=== PATIENT | male | born 1960 | race Caucasian/White ===

== ENCOUNTER 2018-11-05 10:15 | Emergency (ER) | payer BC ==
[2018-11-05] MEDS ORDERED: methylPREDNISolone Sodium Succinate 125 MG/2 ML SDV IM ONE (10:43)
[2018-11-05] MEDS ORDERED: Albuterol/Ipratropium 3.0-0.5 MG/3 ML Neb Soln NEB ONE (10:43)
--- NOTE | 2018-11-05 10:44 | EDM.PDOC ---
ED HPI GENERAL MEDICAL PROBLEM - General Chief Complaint: Respiratory Problem Stated Complaint: RESPIRATORY ISSUES Time Seen by Provider: 11/05/18 10:40 Source of Information: Reports: Patient History Limitations: Reports: No Limitations - History of Present Illness INITIAL COMMENTS - FREE TEXT/NARRATIVE: HISTORY AND PHYSICAL: History of present illness: Patient is a 57-year-old male here with complaint of cough 4 days. He states he has had some vomiting, sore throat, pain in his side all secondary to the cough. He states he's felt feverish with chills. He denies chest pain or shortness of breath. Past medical history significant for hypertension and hyperlipidemia. He does smoke 1.5 pack per day 20+ years Review of systems: As per history of present illness and below otherwise all systems reviewed and negative. Past medical history: As per history of present illness and as reviewed below otherwise noncontributory. Surgical history: As per history of present illness and as reviewed below otherwise noncontributory. Social history: No reported history of drug or alcohol abuse. Family history: As per history of present illness and as reviewed below otherwise noncontributory. Physical exam: General: Patient sitting comfortably in no acute distress and nontoxic appearing HEENT: Atraumatic, normocephalic, pupils reactive, negative for conjunctival pallor or scleral icterus, mucous membranes moist, throat clear, neck supple, nontender, trachea midline. No meningeal signs. Lungs: Breath sounds are tight with wheezing throughout all lung hood., chest nontender. Heart: S1S2, regular, negative for clicks, rubs, or overt murmur. Abdomen: Soft, nondistended, nontender. Negative for masses or hepatosplenomegaly. Negative for costovertebral tenderness. Pelvis: Stable nontender. Genitourinary: Deferred. Rectal: Deferred. Extremities: Atraumatic, negative for cords or calf pain. Neurovascular unremarkable. Neuro: Awake, alert, oriented. Cranial nerves II through XII unremarkable. Cerebellum unremarkable. Motor and sensory unremarkable throughout. Exam nonfocal. Notes: Diagnostics: Chest x-ray, influenza Therapeutics: DuoNeb SoluMedrol 125 mg IM Prescriptions: Azithromycin Ventolin inhaler Medrol dosepak Impression: Acute bronchitis Plan: 1. Take medications as instructed 2. Follow up with primary care provider 3. Return to ED as needed as discussed Definitive disposition and diagnosis as appropriate pending reevaluation and review of above. Generalized Pain Score (Numeric/FACES): 4 - Related Data Allergies Allergy/AdvReac Type Severity Reaction Status Date / Time Penicillins Allergy Swelling Verified 11/05/18 10:35 Home Meds: Home Meds atorvaSTATin [Lipitor] 40 mg PO DAILY 09/05/18 [History] hydroCHLOROthiazide [Hydrochlorothiazide] 25 mg PO QAM 09/05/18 [History] Albuterol [Ventolin HFA] 1 puff INH Q4H #1 inhaler 11/05/18 [Rx] Azithromycin [Zithromax] 250 mg PO ASDIRECTED #1 dosepk 11/05/18 [Rx] methylPREDNISolone [Medrol] 4 mg PO ASDIRECTED #1 tab.ds.pk 11/05/18 [Rx] Past Medical History - Past Health History Medical/Surgical History: Denies Medical/Surgical History Cardiovascular History: Reports: High Cholesterol, Hypertension Musculoskeletal History: Reports: None - Infectious Disease History Infectious Disease History: Reports: Chicken Pox - Past Surgical History Cardiovascular Surgical History: Reports: None Musculoskeletal Surgical History: Reports: Other (See Below) Other Musculoskeletal Surgeries/Procedures:: screws to left ankle Social & Family History - Family History Family Medical History: Noncontributory - Tobacco Use Smoking Status *Q: Current Every Day Smoker Years of Tobacco use: 7 Packs/Tins Daily: 1.5 - Caffeine Use Caffeine Use: Reports: Coffee - Recreational Drug Use Recreational Drug Use: No ED ROS GENERAL - Review of Systems Review Of Systems: ROS reveals no pertinent complaints other than HPI. ED EXAM, GENERAL - Physical Exam Exam: See Below (See dictation) Course - Vital Signs Last Recorded V/S: Last Vital Signs Temp 96.4 F 11/05/18 10:34 Pulse 86 11/05/18 10:34 Resp 18 11/05/18 10:34 BP 125/79 11/05/18 10:34 Pulse Ox 96 11/05/18 10:34 - Orders/Labs/Meds Orders: Active Orders 24 hr Category Date Time Status RT Aerosol Therapy [RC] ASDIRECTED Care 11/05/18 10:44 Active Labs: Laboratory Tests 11/05/18 11/05/18 Range/Units 10:55 10:55 WBC 6.80 (4.0-11.0) K/uL RBC 4.68 (4.50-5.90) M/uL Hgb 15.3 (13.0-17.0) g/dL Hct 45.2 (38.0-50.0) % MCV 96.6 (80.0-98.0) fL MCH 32.7 H (27.0-32.0) pg MCHC 33.8 (31.0-37.0) g/dL RDW Std Deviation 44.0 (28.0-62.0) fl RDW Coeff of River 13 (11.0-15.0) % Plt Count 195 (150-400) K/uL MPV 9.80 (7.40-12.00) fL Neut % (Auto) 48.7 (48.0-80.0) % Lymph % (Auto) 27.2 (16.0-40.0) % Early % (Auto) 15.4 H (0.0-15.0) % Eos % (Auto) 7.8 H (0.0-7.0) % Baso % (Auto) 0.9 (0.0-1.5) % Neut # (Auto) 3.3 (1.4-5.7) K/uL Lymph # (Auto) 1.9 (0.6-2.4) K/uL Early # (Auto) 1.1 H (0.0-0.8) K/uL Eos # (Auto) 0.5 (0.0-0.7) K/uL Baso # (Auto) 0.1 (0.0-0.1) K/uL Nucleated RBC % 0.0 /100WBC Nucleated RBCs # 0 K/uL Sodium 142 (136-148) mmol/L Potassium 4.4 (3.5-5.1) mmol/L Chloride 104 (98-107) mmol/L Carbon Dioxide 32.6 H (21.0-32.0) mmol/L BUN 18 (7.0-18.0) mg/dL Creatinine 0.8 (0.8-1.3) mg/dL Est Cr Clr Drug Dosing 108.51 mL/min Estimated GFR (MDRD) > 60.0 ml/min Glucose 102 (74-106) mg/dL Calcium 9.5 (8.5-10.1) mg/dL Total Bilirubin 0.6 (0.2-1.0) mg/dL AST 52 H (15-37) IU/L ALT 70 H (14-63) IU/L Alkaline Phosphatase 96 (46-116) U/L Total Protein 7.4 (6.4-8.2) g/dL Albumin 3.5 (3.4-5.0) g/dL Globulin 3.9 (2.6-4.0) g/dL Albumin/Globulin Ratio 0.9 (0.9-1.6) Meds: Medications Discontinued Medications Generic Name Dose Route Start Last Admin Trade Name Freq PRN Reason Stop Dose Admin Albuterol/Ipratropium 3 ml 11/05/18 10:43 11/05/18 11:10 Duoneb 3.0-0.5 Mg/3 Ml NEB 11/05/18 10:44 3 ml ONETIME ONE Administration Methylprednisolone Sodium Succinate 125 mg 11/05/18 10:43 11/05/18 11:10 Solu-Medrol IM 11/05/18 10:44 125 mg ONETIME ONE Administration Departure - Departure Time of Disposition: 11:41 Disposition: Home, Self-Care 01 Condition: Good Clinical Impression: Acute bronchitis - Discharge Information Referrals: PCP,None [Primary Care Provider] - Forms: ED Department Discharge Additional Instructions: The following information is given to patients seen in the emergency department who are being discharged to home. This information is to outline your options for follow-up care. We provide all patients seen in our emergency department with a follow-up referral. The need for follow-up, as well as the timing and circumstances, are variable depending upon the specifics of your emergency department visit. If you don't have a primary care physician on staff, we will provide you with a referral. We always advise you to contact your personal physician following an emergency department visit to inform them of the circumstance of the visit and for follow-up with them and/or the need for any referrals to a consulting specialist. The emergency department will also refer you to a specialist when appropriate. This referral assures that you have the opportunity for follow-up care with a specialist. All of these measure are taken in an effort to provide you with optimal care, which includes your follow-up. Under all circumstances we always encourage you to contact your private physician who remains a resource for coordinating your care. When calling for follow-up care, please make the office aware that this follow-up is from your recent emergency room visit. If for any reason you are refused follow-up, please contact the [facility] at and asked to speak to the emergency department charge nurse. [facility] [address], [place] [address] [facility] [address] [place] [id number] 1. Take medications as instructed 2. Follow up with primary care provider 3. Return to ED as needed as discussed - My Orders Last 24 Hours: My Active Orders 11/05/18 10:44 RT Aerosol Therapy [RC] ASDIRECTED - Assessment/Plan Last 24 Hours: My Active Orders 11/05/18 10:44 RT Aerosol Therapy [RC] ASDIRECTED
--- NOTE | 2018-11-05 11:17 | CR ---
CHEST 1 VIEW AP INDICATION: Chest pain short of breath COMPARISON: None available IMPRESSION: Stable heart size and vascular pattern. Lungs are clear of new focal opacities. No pneumothorax. Dictated by Micah Alonso MD @ Nov 05 2018 11:14AM Signed by Dr. Micah Alonso @ Nov 05 2018 11:15AM
[2018-11-05 11:22] LABS: CHLORIDE,CL 104 mmol/L (98-107); SODIUM,NA 142 mmol/L (136-148)
== END 2018-11-05 12:00 | disposition home or self-care (01) ==
LOC: MW.ED 10:15
DX: J20.9 Acute bronchitis, unspecified (principal); E78.00 Pure hypercholesterolemia, unspecified; I10 Essential (primary) hypertension; F17.210 Nicotine dependence, cigarettes, uncomplicated; Z88.0 Allergy status to penicillin; Z79.899 Other long term (current) drug therapy
CPT/HCPCS: 36415; 71045; 80053; 85025; 87804; 96372; 99284; J2930; 99283; J7620-GY